=== PATIENT | male | born 1990 | race Hispanic/Latino ===

== ENCOUNTER 2019-12-28 | Emergency (ER) | payer SELFPAY ==
[~2019-12-28] MED LIST: CEPHALEXIN500 MG OR; CORTISPORIN OTI10 ML AD; NAPROSYN500 MG PO; NO HOME MEDS PER PT; ULTRAM50 MG OR
[2019-12-28 11:21] LABS: HEMATOCRIT 47.9 % (39.0-50.0); HEMOGLOBIN 16.4 g/dl (14.0-18.0); IMMATURE GRANULOCYTES 0.4 % (0.0-5.0); MEAN CELL VOLUME 92.1 fL CALC (80.0-100.0); MEAN CORPUSCULAR HGB 31.5 pG CALC (26.0-32.0); MEAN CORPUSCULAR HGB CONC 34.2 g/dL CAL (32.0-36.0); NEUT# 8.39 thou/uL (1.82-7.42); RED BLOOD COUNT 5.2 mill/uL (4.70-6.10); RED CELL DISTRI WIDTH 12.8 % (11.5-15.5)
[2019-12-28 11:39] LABS: ANION GAP 13 (6-22 (CALC)); BUN 9 mg/dL (9-20); BUN/CREATININE RATIO 16 (12-20 (CALC)); CARBON DIOXIDE 25 mmol/l (22-30); CHLORIDE 102 mmol/l (95-108); CREATININE 0.6 mg/dL (0.7-1.3); GFR > 60 ML/MIN (>=60 (CALC)); GFR FOR AFR.AMER. > 60 ML/MIN (>=60 (CALC)); POTASSIUM 4.5 mmol/l (3.5-5.1); SODIUM 135 mmol/l (137-146)
[2019-12-28] MEDS ORDERED: CIPROFLOXACN500 MG PO (12:27)
[2019-12-28] MEDS ORDERED: FLOXIN OTIC0.3 % AD (12:27)
== END 2019-12-28 13:10 | disposition home or self-care (01) | DRG 156 ==
PROVIDERS: Family Medicine
DX: H60.21 Malignant otitis externa, right ear (principal)
CPT/HCPCS: J0692; Q9967